=== PATIENT | male | born 2000 | race Caucasian/White ===

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

== ENCOUNTER 2018-05-05 12:34 | Inpatient (IN) | payer OTHER ==
[2018-05-05 13:28] LABS: HEMATOCRIT 45.4 % (42.0-52.0); HEMOGLOBIN 16.2 g/dl (13.5-17.5); MEAN CORPUSCULAR HEMOGLOBIN 31.3 pg (27.0-33.0); MEAN CORPUSCULAR HGB CONC 35.7 g/dl (32.0-36.5); MEAN CORPUSCULAR VOLUME 87.8 fl (80.0-96.0); PLATELET COUNT, AUTOMATED 215 10^3/uL (150-450); RED BLOOD COUNT 5.17 10^6/uL (4.30-6.10); RED CELL DISTRIBUTION WIDTH 12.2 % (11.5-14.5)
[2018-05-05 13:59] LABS: ALBUMIN/GLOBULIN RATIO 1.21 (1.00-1.93); ALKALINE PHOSPHATASE 78 U/L (45-117); ALT/SGPT 27 U/L (12-78); ANION GAP 10 MEQ/L (8-16); AST/SGOT 18 U/L (7-37); BILIRUBIN,DIRECT 0.1 MG/DL (0.0-0.2); BILIRUBIN,TOTAL 0.4 MG/DL (0.2-1.0); BLOOD UREA NITROGEN 9 MG/DL (7-18); CALCIUM LEVEL 8.7 MG/DL (8.5-10.1); CARBON DIOXIDE LEVEL 24 MEQ/L (21-32); CHLORIDE LEVEL 109 MEQ/L (98-107); CREATININE FOR GFR 0.75 MG/DL (0.70-1.30); ETHYL ALCOHOL (ETHANOL) 0.039 % (0.000-0.010); GLUCOSE, FASTING 81 MG/DL (70-100); SALICYLATE LEVEL < 1.7 MG/DL (5.0-30.0); SODIUM LEVEL 143 MEQ/L (136-145); THYROID STIMULATING HORMONE 0.529 uIU/ML (0.463-3.98); TOTAL PROTEIN 7.3 GM/DL (6.4-8.2)
[2018-05-05 14:00] LABS: ACETAMINOPHEN LEVEL < 2.0 UG/ML (10.0-30.0)
[2018-05-05 14:56] LABS: AMPHETAMINES LEVEL URINE NEGATIVE (NEGATIVE); BARBITURATES URINE NEGATIVE (NEGATIVE); BENZODIAZEPINES URINE NEGATIVE (NEGATIVE); CANNABINOIDS URINE NEGATIVE (NEGATIVE); COCAINE METABOLITE URINE NEGATIVE (NEGATIVE); METHADONE URINE NEGATIVE (NEGATIVE); OPIATES URINE NEGATIVE (NEGATIVE); PHENCYCLIDINE URINE NEGATIVE (NEGATIVE)
[2018-05-05] MEDS ORDERED: MOM 30ML SUSPENSION UDC PO (16:15)
[2018-05-05] MEDS ORDERED: LORazepam 1 MG TAB PO (16:15)
[2018-05-05] MEDS ORDERED: ACETAMINOPHEN TAB 650MG DOSE (2X325MG) PO (16:15)
[2018-05-05] MEDS ORDERED: traZODone 50 MG TAB PO (16:15)
[2018-05-05] MEDS ORDERED: MAALOX 30 ML SUSP *UDC PO (16:15)
[2018-05-05] MEDS: NICOTINE 21MG/24HR 1 EA TRANSDERMAL TD (18:21)
[2018-05-06] MEDS: NICOTINE 21MG/24HR 1 EA TRANSDERMAL TD (08:47)
[2018-05-07] MEDS: NICOTINE 21MG/24HR 1 EA TRANSDERMAL TD (09:00)
[2018-05-08] MEDS: NICOTINE 21MG/24HR 1 EA TRANSDERMAL TD (09:00)
[2018-05-09] MEDS: NICOTINE 21MG/24HR 1 EA TRANSDERMAL TD (09:00)
== END 2018-05-09 14:15 | disposition home or self-care (01) | DRG 882 ==
LOC: M ED 12:34 → M ED INP 16:09 → M PSY 18:01
DX: F43.23 Adjustment disorder with mixed anxiety and depressed mood (principal); F10.10 Alcohol abuse, uncomplicated; F17.210 Nicotine dependence, cigarettes, uncomplicated

== ENCOUNTER 2018-08-23 21:27 | Emergency (ER) | payer OTHER ==
[2018-08-23 22:52] VITALS: BP 115/59
--- NOTE | 2018-08-29 19:37 | REP ---
Clinical: Trauma. Technique: AP and frog lateral views of the left femur. Findings: No acute fracture or dislocation. Skeletal structures, joint spaces, and surrounding soft tissues appear normal. No subcutaneous emphysema or radiodense foreign body. Impression: No acute fracture or dislocation. Electronically Signed by Blas Stevens MD 08/29/2018 07:29 P
--- NOTE | 2018-08-29 19:38 | REP ---
Clinical: Trauma. Technique: AP and lateral views of the left tibia / fibula. Findings: No obvious acute fracture or dislocation. Skeletal structures, joint spaces, and surrounding soft tissues appear normal. No subcutaneous emphysema or radiodense foreign body. Impression: No obvious acute fracture or dislocation. Electronically Signed by Blas Stevens MD 08/29/2018 07:30 P
== END 2018-08-23 23:34 | disposition home or self-care (01) ==
LOC: EDBD 21:27 → M ED 21:27
DX: S80.12XA Contusion of left lower leg, initial encounter (principal); Y08.02XA Assault by strike by baseball bat, initial encounter; Y92.410 Unspecified street and highway as the place of occurrence of the external cause; Y93.9 Activity, unspecified; Y99.9 Unspecified external cause status